=== PATIENT | female | born 1945 | race Caucasian/White ===

== ENCOUNTER 2018-05-30 01:07 | Outpatient (CLI) | payer MEDICARE, OTHER, SELFPAY ==
--- NOTE | 2018-05-30 09:19 | DI.MAMMO_ITS ---
SYMPTOM/DIAGNOSIS: SCREENING, Z12.31 MAMMOGRAMS: Mammograms were interpreted according to the usual protocol including computer analysis with CAD system, tomosynthesis and C view imaging. The breasts are heterogeneously dense. No dominant mass or clumped microcalcification is identified in either breast. The current examination is compared with previous examinations including 05/2017 and there has been no gross interval change in appearance in comparison with the previous studies. CONCLUSION: No specific evidence of malignancy at this time. Routine screening examinations are suggested at yearly intervals due to the family history of breast carcinoma. Category 1. Breast density, category C. MQSA ASSESSMENT OF FINDINGS: Negative. Category 1. Patient will receive a letter notifying them of these results. Bi-RADS category C. The breasts are heterogeneously dense, which may obscure small masses.
== END 2018-05-30 01:27 ==
PROVIDERS: PCP Family Medicine; Visit Provider Family Medicine
DX: Z12.31 Encounter for screening mammogram for malignant neoplasm of breast (principal); Z80.3 Family history of malignant neoplasm of breast
CPT/HCPCS: 77063; 77067

== ENCOUNTER 2018-10-01 08:56 | Outpatient (CLI) | payer MEDICARE, OTHER, SELFPAY ==
[2018-10-01 11:09] LABS: TSH 2.18 uIU/mL (0.358-3.74)
== END 2018-10-01 09:16 ==
PROVIDERS: PCP Family Medicine; Visit Provider Family Medicine
DX: E03.9 Hypothyroidism, unspecified (principal)
CPT/HCPCS: 36415; 84443

== ENCOUNTER 2018-10-10 01:37 | Outpatient (CLI) | payer MEDICARE, OTHER, SELFPAY ==
[2018-10-10 20:46] LABS: T3,Free 2.7 pg/ml (2.8-5.3)
== END 2018-10-10 01:57 ==
PROVIDERS: PCP Family Medicine; Visit Provider Family Medicine
DX: E03.9 Hypothyroidism, unspecified (principal)
CPT/HCPCS: 36415; 84481

== ENCOUNTER 2019-03-13 10:57 | Emergency (ER) | payer MEDICARE, OTHER, SELFPAY ==
[2019-03-13 11:00] VITALS: BP 121/72; PULSE 71; RESP 16; TEMP 37; O2SAT 100
--- NOTE | 2019-03-13 11:56 | ED.GENADUL_ITS ---
Discharge Plan Disposition Patient Disposition: HOME Condition: Stable Discharge Details Chief Complaint: RashLesion Clinical Impression: Rash and nonspecific skin eruption Primary Care Provider: Floridalma Sinha ED Provider: Ethan Klein Home Meds and New Rx's Prescriptions: Continued polyethylene glycol 3350 [Miralax] 17 GM powder in packet 17 gm PO PRN RF: 0 Calcium Magnesium + D 1 EACH tablet 2 tab PO BID RF: 0 levothyroxine 50 mcg tablet 50 mcg PO DAILY Qty: 90 RF: 4 cholecalciferol (vitamin D3) [Vitamin D3] 2,000 unit capsule 2,000 unit PO DAILY RF: 0 Discharge Instructions Instructions: Acute Rash (ED) Additional Instructions: Continue to observe rash you may use mrxy-obm-ahqsvvt lotion and/or hydrocortisone cream to see if this continues to improve symptoms. Feel free to return for any new or significant worsening of symptoms or further concerns you have otherwise follow-up with your primary care provider as needed for reassessment Referrals: Floridalma Sinha MD [Primary Care Provider] - Discharge Data Discharge Date/Time-TO BE ENTERED AT DEPARTURE: 03/13/19 12:08 Medical Decision Making Patient presenting the emergency department chief complaint of rash to left upper thigh. She noticed it this morning while using the restroom. She does state earlier this morning while she was showering she did not notice it. Patient denies any tick bites or insect bites that she is aware of, states that she wears pants, no risk factors for unknown tick bite, denies any pain discomfort itching or spreading of rash and actually states that it is resolving. Physical exam shows a mildly erythematous irregular rash to left upper thigh. Rash not consistent with erythema margins, cellulitis, tinea, no petechiae and rash is blanchable. Possible insect bite or localized irritation due to unknown topical exposure. Patient states that given that it is improving she is unsure if it needs any treatment at this time. We did discuss possible treatments including tzvy-vgi-afryboe hydrocortisone cream or eczema cream along with return precautions. Patient stated she would just continue to observe rash and return as needed. After discussion of diagnosis and plan of care patient has no further needs, questions, or concerns and states clear understanding to return to the emergency department for any worsening symptoms. HPI General Mode of arrival: ambulatory . Date/Time Provider Initiated Documentation: 03/13/19 11:24 . Limitations to Documentation: no limitations . Information obtained by: patient and RN notes reviewed . History of Present Illness 73 year old F presents to the emergency department with the chief complaint of rash, described as mild, Quality is described as other (denies pain, itching, or discomfort), and is localized to the left and lower extremity. Patient started experiencing this hour(s) (2) and it has been constant (but improving). No relieving factors improve symptom(s), No exac erbating factors reported . Patient notes no other symptoms.. Patient did receive the following treatments prior to arrival, none Related Data Home Medications Medication Instructions Recorded Confirmed polyethylene glycol 3350 [Miralax] 17 gm PO PRN gm 05/11/15 03/13/19 Calcium Magnesium + D 2 tab PO BID 08/29/15 03/13/19 levothyroxine 50 mcg tablet 50 mcg PO DAILY #90 tab-cap 11/18/18 03/13/19 cholecalciferol (vitamin D3) 2,000 2,000 unit PO DAILY cap 02/09/19 03/13/19 unit capsule Previous Rx's Medication Instructions Recorded levothyroxine 50 mcg tablet 50 mcg PO DAILY #90 tab-cap 11/18/18 Allergies Allergy/AdvReac Type Severity Reaction Status Date / Time cat dander Allergy Mild Rhinorrhea Unverified 03/13/19 11:07 alendronate sodium AdvReac Intermediate constipatio Unverified 03/13/19 11:07 [From Fosamax] n General Stated Complaint: RashLesion DESMOND: 4 Review of Systems Constitutional Denies body ache(s), Denies fever(s) and Denies headache(s) ENT Denies headache(s) Musculoskeletal Denies myalgias, Denies arthralgias and Denies joint swelling Integumentary/Breasts Reports as per HPI, Denies erythema and Denies rash Neurologic Denies headache(s) and Denies paresthesias [facility] Medical History (Updated 05/09/18 @ 14:01 by Vishnu Guillen) diverticulosis Hyperlipidemia Hypothyroidism Osteopenia Surgical History (Updated 05/28/18 @ 14:36 by [employer] [place]) COLONOSCOPY left saphenous vein stripping (~2010) Ligation of fallopian tube right great toe surgery (~1979) Tonsillectomy and adenoidectomy Family History Mother Hyperlipidemia Mental disorder Father Neoplasm Stroke Brother No problems noted. Brother Essential hypertension Hyperlipidemia Neoplasm Grandfather No problems noted. Grandfather No problems noted. Grandmother Essential hypertension Grandmother Diabetes Neoplasm Social History Smoking/Tobacco Use Status: Former Tobacco Use Drug use: Never Do you feel safe at home: Yes Do you feel safe in your relationship?: Yes Exam Const General: cooperative, comfortable and no acute distress Orientation: alert, awake and oriented x3 Resp Effort & Inspection: normal respiratory effort and able to speak in complete sentences Skin General skin exam: no fluctuance, no induration and other Rashes: rashes noted left anterior upper leg size (4cm), arrangement reticular, borders indistinct, color red and surface blanching, dry, smooth and warm; fluctuant not assessed and nontender Neuro General: alert, awake and oriented x3 Course Vital Signs Temperature 37.0 C 03/13/19 11:00 Pulse 71 03/13/19 11:00 Respiratory Rate 16 03/13/19 11:00 Blood Pressure 121/72 03/13/19 11:00 Pulse Oximetry 100 03/13/19 11:00 Temperature 37.0 C 03/13/19 11:00 Temperature Source Skin 03/13/19 11:00 Pulse 71 03/13/19 11:00 Respiratory Rate 16 03/13/19 11:00 Respiratory Effort 03/13/19 11:08 Blood Pressure 121/72 03/13/19 11:00 Pulse Oximetry 100 03/13/19 11:00 Oxygen Delivery Method Room Air 03/13/19 11:00 Oxygen Flow Rate 0 03/13/19 11:00 Pain Level 0 03/13/19 11:00
== END 2019-03-13 12:08 | disposition home or self-care (01) ==
PROVIDERS: Emergency Provider Nurse Practitioner Family; PCP Family Medicine
DX: R21 Rash and other nonspecific skin eruption (principal)
CPT/HCPCS: 99282

== ENCOUNTER 2019-06-01 00:40 | Outpatient (CLI) | payer MEDICARE, OTHER, SELFPAY ==
--- NOTE | 2019-06-01 12:00 | DI.MAMMO_ITS ---
EXAM: MG MAMMO SCREENING CLINICAL HISTORY: screening TECHNIQUE: Mammograms were interpreted according to the usual protocol including computer analysis w [employer] CAD system, tomosynthesis and C-view imaging. COMPARISON: [id number] FINDINGS: The breasts are composed of heterogeneously dense tissue, which may obscure small masses, breast dens ity category C. There are no suspicious masses or suspicious microcalcifications. There has been no significant chagne when compared with prior images. IMPRESSION: Category 1, negative mammogram. Routine yearly screening is recommended. BI-RADS Cat 1 - Negative Breast Density - Category C - Heterogeneously dense
== END 2019-06-01 01:00 ==
PROVIDERS: PCP Family Medicine; Visit Provider Family Medicine
DX: Z12.31 Encounter for screening mammogram for malignant neoplasm of breast (principal)
CPT/HCPCS: 77063; 77067

== ENCOUNTER 2019-10-06 02:25 | Outpatient (CLI) | payer MEDICARE, SELFPAY ==
[2019-10-06 08:09] LABS: ALT 22 U/L (14-59); AST 15 U/L (15-37); Albumin 3.7 g/dL (3.4-5.0); Alkaline Phosphatase 88 U/L (46-116); Anion Gap 5.8 mmol/L (3-11); BUN 12 mg/dL (7-18); Bilirubin, Total 0.3 mg/dL (0.2-1.0); CO2 30.2 mmol/L (21.0-32.0); CREATININE 0.77 mg/dL (0.55-1.02); Calcium 9.4 mg/dL (8.5-10.1); Calculated LDL 171 mg/dL (<100); Chloride 106 mmol/L (98-107); Cholesterol 279 mg/dL (<200); Glucose 94 mg/dL (74-106); HDL Cholesterol 90 mg/dL (40-60); Potassium 4.6 mmol/L (3.5-5.1); Sodium 142 mmol/L (136-145); TSH 3.68 uIU/mL (0.36-3.74); Total Protein 6.7 g/dL (6.4-8.2); Triglyceride 91 mg/dL (<150)
== END 2019-10-06 02:45 ==
PROVIDERS: PCP Family Medicine; Visit Provider Family Medicine
DX: E03.9 Hypothyroidism, unspecified (principal); E78.5 Hyperlipidemia, unspecified
CPT/HCPCS: 36415; 80053; 80061; 84443

== ENCOUNTER 2020-06-03 03:13 | Outpatient (CLI) | payer MEDICARE, SELFPAY ==
--- NOTE | 2020-06-03 07:00 | DI.MAMMO_ITS ---
EXAM: MAMMO SCREENING CLINICAL HISTORY: screening,Z12.39 TECHNIQUE: Mammograms were interpreted according to the usual protocol including computer analysis w [employer] CAD system, tomosynthesis and C-view imaging. COMPARISON: 2010 through 2018 FINDINGS: The breasts are composed of heterogeneously dense fibroglandular densities, Breast Density category C . No suspicious masses or suspicious microcalcifications are seen. No skin thickening or abnormal axillary lymph nodes are seen. There has been no significant change from prior exams. IMPRESSION: BI-RADS Category 1, Negative mammogram. Yearly screening mammography is recommended. Breast Density Category C, heterogeneously Dense. The mammogram demonstrates the patient's breast tissue is dense. Dense breast tissue is very common a nd is not abnormal but dense breast tissue can make it harder to find cancer on a mammogram. Also, de nse breast tissue may increase breast cancer risk. This information about the result of the mammogram report was provided to the patient to raise their awareness. Use this report when you speak with the patient about their risks for breast cancer, which includes their family history. At that time, you may recommend additional screening tests (Ultrasound or MRI) as they might be useful based on their r isk. A negative radiographic report should not delay biopsy if a dominant or clinically suspicious mass is present. Up to ten percent of cancers are not identified on mammography. A negative report may reinforce clinical impression. Adenosis and dense breasts may obscure an underlying neoplasm. False positive reports average 6 to 10%.
== END 2020-06-03 03:33 ==
PROVIDERS: PCP Family Medicine; Visit Provider Family Medicine
DX: Z12.31 Encounter for screening mammogram for malignant neoplasm of breast (principal)
CPT/HCPCS: 77063; 77067

== ENCOUNTER 2020-10-27 02:39 | Outpatient (CLI) | payer MEDICARE, SELFPAY ==
[2020-10-27 12:42] LABS: ALT 25 U/L (14-59); AST 19 U/L (15-37); Albumin 3.9 g/dL (3.4-5.0); Alkaline Phosphatase 94 U/L (46-116); Anion Gap 5.5 mmol/L (3-11); BUN 17 mg/dL (7-18); Bilirubin, Total 0.5 mg/dL (0.2-1.0); CO2 31.5 mmol/L (21.0-32.0); CREATININE 0.9 mg/dL (0.55-1.02); Calcium 10.1 mg/dL (8.5-10.1); Calculated LDL 179 mg/dL (<100); Chloride 104 mmol/L (98-107); Cholesterol 291 mg/dL (<200); Glucose 93 mg/dL (74-106); HDL Cholesterol 85 mg/dL (40-60); Potassium 4.5 mmol/L (3.5-5.1); Sodium 141 mmol/L (136-145); Triglyceride 138 mg/dL (<150)
[2020-10-27 12:56] LABS: Vitamin D 25 Total 41.2 ng/ml (30-100)
[2020-10-31 16:10] LABS: Vitamin D 25 Total 41.3 ng/ml (30-100)
== END 2020-10-27 02:40 | disposition home or self-care (01) ==
LOC: LOS 02:39
PROVIDERS: PCP Family Medicine; Visit Provider Family Medicine
DX: E78.5 Hyperlipidemia, unspecified (principal); E03.9 Hypothyroidism, unspecified; M85.88 Other specified disorders of bone density and structure, other site
CPT/HCPCS: 36415; 80053; 80061; 82306; 84443

== ENCOUNTER 2021-06-05 00:29 | Outpatient (CLI) | payer MEDICARE, SELFPAY ==
--- NOTE | 2021-06-05 09:44 | DI.MAMMO_ITS ---
Exam(s) MAMMO SCREENING EXAM: MAMMO SCREENING CLINICAL HISTORY: screening,z12.39. TECHNIQUE: Bilateral full field digital CC and MLO mammographic images were obtained with 3D tomosyn thesis and utilizing computer aided detection (CAD). COMPARISON: Prior mammograms dating back to 2011, the most recent being May 2020. FINDINGS: Fibroglandular tissue is moderately dense. There are no new obvious spiculated masses nor malignant appearing microcalcification groups. There is no significant architectural distortion nor skin thickening-retraction. IMPRESSION: Moderately dense fibroglandular tissue. No obvious radiographic evidence of malignancy. BI-RADS Category 1 - Negative Breast Density - Category C - Heterogeneously dense Breast density Category C or D implies that the patient has dense breast tissue. Dense breast tissue can make it harder to find cancer on a mammogram. Dense breast tissue is also associated with an incr eased risk of breast cancer. This information about the result of the mammogram report was provided to the patient to raise their awareness. Use this report when you speak with the patient about their risks for breast cancer, which includes their family history. At that time, you may recommend additional screening tests (Ultrasoun d or MRI) as these tests may add significant information. A negative radiographic report should not delay biopsy if a dominant or clinically suspicious mass is present. Up to ten percent of cancers are not identified on mammography. A negative report may reinforce clinical impression. Adenosis and dense breasts may obscure an underlying neoplasm. False positive reports average 6 to 10%. Patient will receive a letter notifying them of these results.
== END 2021-06-05 00:49 ==
PROVIDERS: PCP Family Medicine; Visit Provider Family Medicine
DX: Z12.31 Encounter for screening mammogram for malignant neoplasm of breast (principal)
CPT/HCPCS: 77063; 77067

== ENCOUNTER 2021-11-06 03:45 | Outpatient (CLI) | payer MEDICARE, SELFPAY ==
[2021-11-06 08:56] LABS: ALT 24 U/L (14-59); AST 23 U/L (15-37); Albumin 3.8 g/dL (3.4-5.0); Alkaline Phosphatase 87 U/L (46-116); Anion Gap 5.9 mmol/L (3-11); BUN 14 mg/dL (7-18); Bilirubin, Total 0.4 mg/dL (0.2-1.0); CO2 29.1 mmol/L (21.0-32.0); CREATININE 0.6 mg/dL (0.55-1.02); Calcium 9.9 mg/dL (8.5-10.1); Calculated LDL 173 mg/dL (<100); Chloride 104 mmol/L (98-107); Cholesterol 286 mg/dL (<200); Glucose 95 mg/dL (74-106); HDL Cholesterol 85 mg/dL (40-60); Potassium 4.6 mmol/L (3.5-5.1); Sodium 139 mmol/L (136-145); Total Protein 6.8 g/dL (6.4-8.2); Triglyceride 143 mg/dL (<150)
[2021-11-06 09:09] LABS: Vitamin D 25 Total 38.2 ng/mL (30-100)
[2021-11-06 09:13] LABS: FREE T4 0.89 ng/dL (0.76-1.46)
== END 2021-11-06 03:46 | disposition home or self-care (01) ==
LOC: LBO 03:45
PROVIDERS: PCP Family Medicine; Visit Provider Family Medicine
DX: I10 Essential (primary) hypertension (principal); E78.5 Hyperlipidemia, unspecified; E03.9 Hypothyroidism, unspecified; E55.9 Vitamin D deficiency, unspecified
CPT/HCPCS: 36415; 80053; 80061; 82306; 84439; 84443

== ENCOUNTER 2022-01-30 00:57 | Outpatient (CLI) | payer MEDICARE, SELFPAY | END 2022-01-30 00:58 | disposition home or self-care (01) | LOC: LBO 00:57 | PROVIDERS: PCP Nurse Practitioner Family; Visit Provider Family Medicine ==

== ENCOUNTER 2022-02-02 01:45 | Outpatient (CLI) | payer MEDICARE, SELFPAY ==
[2022-02-02 14:26] LABS: FREE T4 1.08 ng/dL (0.76-1.46); TSH 0.35 uIU/mL (0.36-3.74)
== END 2022-02-02 01:46 | disposition home or self-care (01) ==
LOC: LBO 01:45
PROVIDERS: PCP Nurse Practitioner Family; Visit Provider Family Medicine
DX: E03.9 Hypothyroidism, unspecified (principal)
CPT/HCPCS: 36415; 84439; 84443

== ENCOUNTER 2022-03-16 17:03 | Outpatient (REF) | payer MEDICARE, OTHER, SELFPAY ==
[2022-03-17 12:06] LABS: COVID-19 RT-PCR UVMMC Result Negative (Negative)
== END 2022-03-16 17:04 | disposition home or self-care (01) ==
LOC: LBN 17:03
PROVIDERS: PCP Nurse Practitioner Family; Visit Provider Physician Assistant Medical
DX: J31.0 Chronic rhinitis (principal); Z20.822 Contact with and (suspected) exposure to COVID-19
CPT/HCPCS: U0003; U0005

== ENCOUNTER 2022-04-23 03:54 | Outpatient (CLI) | payer MEDICARE, OTHER, SELFPAY ==
[2022-04-23 15:01] LABS: HCT 38.4 % (36.0-46.0); HGB 12.3 g/dL (11.2-15.7); MCH 30.7 pg (27.0-33.0); MCV 96 fL (80-95); MPV 10.9 fL (8.0-11.0); Platelet Count 230 10^3/uL (130-400); RBC 4.01 10^6/uL (3.93-5.22); RDW-SD 49.8 fL; WBC 7.14 10^3/uL (4.4-10.8)
[2022-04-23 15:57] LABS: Iron 108 ug/dL (50-170); Total Iron Binding Capacity 254 ug/dL (250-450); Transferrin Sat 43 % (15-50)
[2022-04-23 16:12] LABS: Ferritin 50 ng/mL (8-252)
== END 2022-04-23 03:55 | disposition home or self-care (01) ==
LOC: LBO 03:54
PROVIDERS: PCP Nurse Practitioner Family; Visit Provider Naturopath
DX: Z52.000 Unspecified donor, whole blood (principal); E55.9 Vitamin D deficiency, unspecified
CPT/HCPCS: 36415; 82306; 85027; 82728; 83540; 83550

== ENCOUNTER → 2022-06-08 00:47 | Outpatient (CLI) | payer MEDICARE, SELFPAY ==
--- NOTE | 2022-06-08 08:00 | DI.MAMMO_ITS ---
Exam(s) MAMMO SCREENING EXAM: MAMMO SCREENING CLINICAL HISTORY: screening,Z12.39 TECHNIQUE: Bilateral full field digital CC and MLO mammographic images were obtained with 3D tomosyn thesis and utilizing computer aided detection (CAD). COMPARISON: Available for comparison. FINDINGS: Masses/Architectural Distortion: None seen. Microcalcifications: No suspicious pleomorphic-type are seen. Skin Thickening/Nipple Retraction: None. IMPRESSION: 1. No significant interval change with no specific features of malignancy noted. 2. Unless there is more urgent need, screening mammography is recommended, as per [employer] guidelines. BI-RADS Category 1 - Negative Breast Density - Category C - Heterogeneously dense Breast density category C or D implies that the patient has dense breast tissue. Dense breast tissue is very common and is not abnormal but dense breast tissue can make it harder to find cancer on a ma mmogram. Also, dense breast tissue may increase their breast cancer risk. This information about the result of the mammogram report was provided to the patient to raise their awareness. Use this report when you speak with the patient about their risks for breast cancer, which includes their family hist ory. At that time, you may recommend for more screening tests (Ultrasound or MRI) as they might be us eful based on their risk. A negative radiographic report should not delay biopsy if a dominant or clinically suspicious mass is present. Up to ten percent of cancers are not identified on mammography. A negative report may reinforce clinical impression. Adenosis and dense breasts may obscure an underlying neoplasm. False positive reports average 6 to 10%. Patient will receive a letter notifying them of these results.
== END ==
PROVIDERS: PCP Nurse Practitioner Family; Visit Provider Nurse Practitioner Family
DX: Z12.31 Encounter for screening mammogram for malignant neoplasm of breast (principal); R92.8 Other abnormal and inconclusive findings on diagnostic imaging of breast
CPT/HCPCS: 77063; 77067

== ENCOUNTER 2022-07-24 02:54 | Outpatient (CLI) | payer MEDICARE, SELFPAY ==
[2022-07-24 13:34] LABS: FREE T4 1.06 ng/dL (0.76-1.46); TSH 0.92 uIU/mL (0.36-3.74)
== END 2022-07-24 02:55 | disposition home or self-care (01) ==
LOC: LBO 02:54
PROVIDERS: PCP Nurse Practitioner Family; Visit Provider Nurse Practitioner Family
DX: Z09 Encounter for follow-up examination after completed treatment for conditions other than malignant neoplasm (principal)
CPT/HCPCS: 36415; 84439; 84443

== ENCOUNTER 2022-10-29 04:04 | Outpatient (CLI) | payer MEDICARE, SELFPAY ==
[2022-10-29 12:45] LABS: Calculated LDL 187 mg/dL (<100); Cholesterol 299 mg/dL (<200); HDL Cholesterol 92 mg/dL (40-60); Triglyceride 102 mg/dL (<150)
[2022-10-29 13:06] LABS: Vitamin D 25 Total 60.1 ng/mL (30-100)
== END 2022-10-29 04:05 | disposition home or self-care (01) ==
LOC: LOS 04:04
PROVIDERS: PCP Nurse Practitioner Family; Visit Provider Nurse Practitioner Family
DX: E78.5 Hyperlipidemia, unspecified (principal); E03.9 Hypothyroidism, unspecified; M85.88 Other specified disorders of bone density and structure, other site
CPT/HCPCS: 36415; 80061; 82306

== ENCOUNTER → 2023-04-30 12:21 | Outpatient (CLI) | payer MEDICARE, SELFPAY ==
--- NOTE | 2023-04-30 08:30 | DI.RAD_ITS ---
Exam(s) XR KNEE RT 3V AP,LAT,AYANA EXAM: XR KNEE RT 3V AP,LAT,AYANA CLINICAL HISTORY: pain for 6 weeks M25.561 PAIN RT KNEE. TECHNIQUE: 2D digital imaging was performed of the right knee. Three views obtained. AP, lateral an d PA tunnel views were obtained. COMPARISON: No priors for comparison. FINDINGS: BONES: No acute fracture is present. No bony destructive lesion is seen. There is a small enthesophyt e at the superior patella. JOINTS: The knee is normally aligned. There does appear to be a small joint effusion. SOFT TISSUE: Normal. IMPRESSION: Very small joint effusion. DATA REPOSITORY: RADIATION DOSE DELIVERED:
== END ==
PROVIDERS: PCP Nurse Practitioner Family; Visit Provider Nurse Practitioner Family
DX: M25.561 Pain in right knee (principal)
CPT/HCPCS: 73562

== ENCOUNTER → 2023-06-10 02:50 | Outpatient (CLI) | payer MEDICARE, SELFPAY ==
--- NOTE | 2023-06-10 08:22 | DI.MAMMO_ITS ---
Exam(s) MAMMO SCREENING EXAM: MAMMO SCREENING CLINICAL HISTORY: screening,z12.39 TECHNIQUE: Mammograms were interpreted according to the usual protocol including computer analysis w [employer] CAD system, tomosynthesis and C-view imaging. COMPARISON: 2013 through 2021 FINDINGS: The breasts are composed of heterogeneously dense fibroglandular densities, Breast Density category C . No suspicious masses or suspicious microcalcifications are seen. No skin thickening or abnormal axillary lymph nodes are seen. There has been no significant change from prior exams. IMPRESSION: BI-RADS Category 1, Negative mammogram. Yearly screening mammography is recommended. Breast Density Category C, heterogeneously Dense. The mammogram demonstrates the patient's breast tissue is dense. Dense breast tissue is very common a nd is not abnormal but dense breast tissue can make it harder to find cancer on a mammogram. Also, de nse breast tissue may increase breast cancer risk. This information about the result of the mammogram report was provided to the patient to raise their awareness. Use this report when you speak with the patient about their risks for breast cancer, which includes their family history. At that time, you may recommend additional screening tests (Ultrasound or MRI) as they might be useful based on their r isk. A negative radiographic report should not delay biopsy if a dominant or clinically suspicious mass is present. Up to ten percent of cancers are not identified on mammography. A negative report may reinforce clinical impression. Adenosis and dense breasts may obscure an underlying neoplasm. False positive reports average 6 to 10%.
== END ==
PROVIDERS: PCP Nurse Practitioner Family; Visit Provider Nurse Practitioner Family
DX: Z12.31 Encounter for screening mammogram for malignant neoplasm of breast (principal)
CPT/HCPCS: 77063; 77067

== ENCOUNTER 2023-06-10 03:12 | Outpatient (CLI) | payer MEDICARE, SELFPAY ==
[2023-06-10 09:14] LABS: TSH (W/Ref FT4) 2.02 uIU/mL (0.36-3.74)
== END 2023-06-10 03:13 | disposition home or self-care (01) ==
PROVIDERS: PCP Nurse Practitioner Family; Visit Provider Nurse Practitioner Family
DX: E03.9 Hypothyroidism, unspecified (principal)
CPT/HCPCS: 36415; 84443

== ENCOUNTER 2023-11-06 04:53 | Outpatient (CLI) | payer MEDICARE, SELFPAY ==
[2023-11-06 10:42] LABS: Calculated LDL 156 mg/dL (<100); Cholesterol 259 mg/dL (<200); HDL Cholesterol 87 mg/dL (40-60); Triglyceride 81 mg/dL (<150)
[2023-11-06 11:31] LABS: Vitamin D 25 Total 35.4 ng/mL (30-100)
== END 2023-11-06 04:54 | disposition home or self-care (01) ==
LOC: LBO 04:53
PROVIDERS: PCP Nurse Practitioner Family; Visit Provider Nurse Practitioner Family
DX: E78.5 Hyperlipidemia, unspecified (principal); E03.9 Hypothyroidism, unspecified; Z79.899 Other long term (current) drug therapy
CPT/HCPCS: 36415; 80061; 82306

== ENCOUNTER 2023-11-08 21:00 | Outpatient (REF) | payer MEDICARE, SELFPAY | END 2023-11-08 21:01 | disposition home or self-care (01) | LOC: LBN 21:00 | PROVIDERS: PCP Nurse Practitioner Family; Visit Provider Nurse Practitioner Family | DX: E03.9 Hypothyroidism, unspecified (principal) | CPT/HCPCS: 84443 ==

== ENCOUNTER 2024-06-11 02:24 | Outpatient (CLI) | payer MEDICARE, SELFPAY ==
--- NOTE | 2024-06-11 06:30 | DI.MAMMO_ITS ---
Exam(s) MAMMO SCREENING EXAM: MAMMO SCREENING CLINICAL HISTORY: screening,z12.39 TECHNIQUE: Mammograms were interpreted according to the usual protocol including computer analysis w [employer] CAD system, tomosynthesis and C-view imaging. COMPARISON: 2014 through 2022 FINDINGS: The breasts are composed of scattered fibroglandular densities, Breast Density category B. No suspicious masses or suspicious microcalcifications are seen. No skin thickening or abnormal axillary lymph nodes are seen. There has been no significant change from prior exams. IMPRESSION: BI-RADS Category 1, Negative mammogram Yearly screening mammography is recommended. Breast Density - Category B, scattered fibroglandular densities. A negative radiographic report should not delay biopsy if a dominant or clinically suspicious mass is present. Up to ten percent of cancers are not identified on mammography. A negative report may reinforce clinical impression. Adenosis and dense breasts may obscure an underlying neoplasm. False positive reports average 6 to 10%. Patient will receive a letter notifying them of these results.
== END 2024-06-11 02:44 ==
LOC: DI 02:24
PROVIDERS: PCP Nurse Practitioner Family; Visit Provider Nurse Practitioner Family
DX: Z12.31 Encounter for screening mammogram for malignant neoplasm of breast (principal)
CPT/HCPCS: 77063; 77067

== ENCOUNTER 2024-11-13 01:07 | Outpatient (CLI) | payer MEDICARE, SELFPAY ==
[2024-11-13 12:50] LABS: Hemoglobin A1C 5.5 % (<5.7)
[2024-11-13 13:15] LABS: Anion Gap 6.5 mmol/L (3-11); BUN 15 mg/dL (7-18); CO2 29.5 mmol/L (21.0-32.0); CREATININE 0.6 mg/dL (0.55-1.02); Calcium 10.4 mg/dL (8.5-10.1); Calculated LDL 171 mg/dL (<100); Chloride 108 mmol/L (98-107); Cholesterol 280 mg/dL (<200); Estimated GFR 91.82 (mL/min/1.73m2); Glucose 91 mg/dL (74-106); HDL Cholesterol 94 mg/dL (>or=50); Potassium 4.8 mmol/L (3.5-5.1); Sodium 144 mmol/L (136-145); TSH (W/Ref FT4) 1.59 uIU/mL (0.36-3.74); Triglyceride 75 mg/dL (<150); Vitamin D 25 Total 42 ng/mL (30-100)
== END 2024-11-13 01:08 | disposition home or self-care (01) ==
LOC: LOS 01:08
PROVIDERS: PCP Nurse Practitioner Family; Referring Provider Nurse Practitioner Family; Visit Provider Nurse Practitioner Family
DX: Z13.6 Encounter for screening for cardiovascular disorders (principal); E03.8 Other specified hypothyroidism; E55.9 Vitamin D deficiency, unspecified; Z13.1 Encounter for screening for diabetes mellitus; E06.3 Autoimmune thyroiditis; R79.89 Other specified abnormal findings of blood chemistry
CPT/HCPCS: 36415; 80048; 80061; 82306; 83036; 84443

== ENCOUNTER → 2025-02-10 09:18 | Outpatient (BNVA) | payer MEDICARE, SELFPAY | PROVIDERS: PCP Nurse Practitioner Family; Referring Provider Nurse Practitioner Family; Visit Provider Physical Therapy Assistant | DX: D48.5 Neoplasm of uncertain behavior of skin (principal) | CPT/HCPCS: 99203 ==

== ENCOUNTER → 2025-02-16 09:17 | Outpatient (BNVA) | payer MEDICARE, SELFPAY | PROVIDERS: PCP Nurse Practitioner Family; Referring Provider Nurse Practitioner Family; Visit Provider Physical Therapy Assistant | DX: C44.722 Squamous cell carcinoma of skin of right lower limb, including hip (principal) | CPT/HCPCS: 11602 ==

== ENCOUNTER 2025-02-16 09:59 | Outpatient (REF) | payer MEDICARE, SELFPAY ==
--- NOTE | 2025-02-16 10:10 | SKI_PTH ---
PATIENT: Yolanda Matthews LOC: [facility] U#:[id number] AGE/SX: 79/F ROOM: RE02/16/[address]: JANNIE Purdy : 1945 BED: DIS: 02/16/2025 SPEC #: [id number] RECD: 02/16/25 12:13 STATUS: MARIE REQ #: [id number] MOHAN: 02/16/25 10:[address]: Ayanna Silver DEPT: Surgical Specimen RECD BY: Elda Griggs ENTERED: 02/16/25 12:14 SP TYPE: EMMY LOZANO DR: Jayesh Orosco, [employer] Tissues: 1 - SKIN BIOPSY(SHAVE/PUNCH) Procedures: SKIN LEVEL 4 Comments: [id number]
== END 2025-02-16 10:00 | disposition home or self-care (01) ==
LOC: LBN 09:59
PROVIDERS: PCP Nurse Practitioner Family; Referring Provider Physical Therapy Assistant; Visit Provider Physical Therapy Assistant
DX: C44.722 Squamous cell carcinoma of skin of right lower limb, including hip (principal)
CPT/HCPCS: 88305

== ENCOUNTER → 2025-06-18 03:22 | Outpatient (CLI) | payer MEDICARE, SELFPAY ==
--- NOTE | 2025-06-18 07:00 | DI.MAMMO_ITS ---
Exam(s) MAMMO SCREENING EXAM: MAMMO SCREENING CLINICAL HISTORY: screening,Z12.39 TECHNIQUE: Bilateral full field digital CC and MLO mammographic images were obtained with 3D tomosynthesis and utilizing computer aided detection (CAD). COMPARISON: Comparison is made with prior examinations. FINDINGS: Masses/Architectural Distortion: There is an area of increased density in the upper left breast on the MLO view. This may be due to overlying fibroglandular tissue. A spot compression view is requested for further evaluation. Microcalcifications: No suspicious pleomorphic-type are seen. Skin Thickening/Nipple Retraction: None. IMPRESSION: 1. Increased breast asymmetry in the upper left breast on the MLO view. 2. Spot compression views requested for further characterization. Ultrasound may be indicated at that time. BI-RADS Category 0 - Incomplete: Need additional imaging evaluation Breast Density - Category B - There are scattered areas of fibroglandular density. Breast density Category C or D implies that the patient has dense breast tissue. Dense breast tissue can make it harder to find cancer on a mammogram. Dense breast tissue is also associated with an increased risk of breast cancer. This information about the result of the mammogram report was provided to the patient to raise their awareness. Use this report when you speak with the patient about their risks for breast cancer, which includes their family history. At that time, you may recommend additional screening tests (Ultrasound or MRI) as these tests may add significant information. A negative radiographic report should not delay biopsy if a dominant or clinically suspicious mass is present. Up to ten percent of cancers are not identified on mammography. A negative report may reinforce clinical impression. Adenosis and dense breasts may obscure an underlying neoplasm. False positive reports average 6 to 10%. Patient will receive a letter notifying them of these results.
== END ==
LOC: DI 03:22
PROVIDERS: PCP Nurse Practitioner Family; Visit Provider Nurse Practitioner Family
DX: Z12.31 Encounter for screening mammogram for malignant neoplasm of breast (principal)
CPT/HCPCS: 77063; 77067

== ENCOUNTER → 2025-06-25 03:00 | Outpatient (CLI) | payer MEDICARE, SELFPAY ==
--- NOTE | 2025-06-25 | DI.US_ITS ---
Exam(s) MG MAMMO SCREEN CALL BACK UNI US BREAST LT COMPLETE EXAM: MG MAMMO SCREEN CALL BACK UNI-LEFT AND COMPLETE LEFT BREAST ULTRASOUND CLINICAL HISTORY: INCREASED BREAST ASYMMETRY UPPER LEFT BREAST R92.8 ABNL MAMMO. TECHNIQUE: Unilateral LEFT BREAST spot mammographic images obtained with 3D tomosynthesisand utilizing computer aided detection (CAD). . Complete LEFT breast Ultrasound was also performed, including all 4 quadrants, the retroareolar region, and the ipsilateral axilla. COMPARISON: Prior mammograms were reviewed. This additional imaging was performed due to findings described on the recent screening mammogram of 06/18/2025. FINDINGS: DIAGNOSTIC MAMMOGRAM: Additional mammographic views performed todayrender this area less concerning.Proceeded with ultrasound COMPLETE LEFT BREAST ULTRASOUND: Ultrasound performed today reveals a solitary finding which is at the 2 o'clock position. This has the appearance of a 3-4 millimeter benign microcyst. This appears to be in the area described on the recent mammogram. There are no other focal findings in all 4 quadrants of the left breast. Scanning of the ipsilateral axilla reveals no significant adenopathy. IMPRESSION: 1. No radiographic evidence of malignancy. 2. Solitary small 3-4 mm microcyst at the 2 o'clock position of the left breast. No solid lesions. Appropriate follow-up is to keep this patient on her yearly mammogram schedule, with earlier imaging if a self detected breast change is noted. The patient was informed of these findings and recommendations by myself prior to leaving the department today. BI-RADS Category 2 - Benign Findings Breast Density - Category B - There are scattered areas of fibroglandular density. Breast density Category C or D implies that the patient has dense breast tissue. Dense breast tissue can make it harder to find cancer on a mammogram. Dense breast tissue is also associated with an increased risk of breast cancer. This information about the result of the mammogram report was provided to the patient to raise their awareness. Use this report when you speak with the patient about their risks for breast cancer, which includes their family history. At that time, you may recommend additional screening tests (Ultrasound or MRI) as these tests may add significant information. A negative radiographic report should not delay biopsy if a dominant or clinically suspicious mass is present. Up to ten percent of cancers are not identified on mammography. A negative report may reinforce clinical impression. Adenosis and dense breasts may obscure an underlying neoplasm. False positive reports average 6 to 10%. Patient will receive a letter notifying them of these results.
== END ==
LOC: DI 03:00
PROVIDERS: PCP Nurse Practitioner Family; Visit Provider Nurse Practitioner Family
DX: R92.8 Other abnormal and inconclusive findings on diagnostic imaging of breast (principal); Z12.31 Encounter for screening mammogram for malignant neoplasm of breast
CPT/HCPCS: 76642; 77063; 77067